=== PATIENT | female | born 1990 | race Caucasian/White ===

== ENCOUNTER → 2018-06-30 | Outpatient (CLI) | payer OTHER ==
[~2018-06-30] MED LIST: FLUO20 PO; IBUP800 PO; TRAM50 PO
== END | disposition home or self-care (01) ==
LOC: LAB SHORT 10:13 → LAB EV 10:13
DX: J02.9 Acute pharyngitis, unspecified (principal)
CPT/HCPCS: 87070

== ENCOUNTER 2019-05-24 19:35 | Emergency (ER) | payer OTHER ==
[~2019-05-24] VITALS: Ht 165.1 cm; Wt 86.0 kg
[2019-05-24] MEDS ORDERED: DEXA4 PO (19:58)
[2019-05-24] MEDS ORDERED: Veetids 500500 MG PO (19:58)
[2019-05-24] MEDS ORDERED: IBUP800 PO (19:59)
== END 2019-05-24 20:06 | disposition home or self-care (01) ==
LOC: ER 19:35
DX: J02.9 Acute pharyngitis, unspecified (principal); F17.200 Nicotine dependence, unspecified, uncomplicated
CPT/HCPCS: 99283

== ENCOUNTER → 2025-02-14 | Outpatient (CLI) | payer OTHER ==
[~2025-02-14] MED LIST changes: +DEXA4 PO; +Veetids 500500 MG PO
[2025-02-20 07:38] LABS: HPVG SOURCE Cervical
== END ==
LOC: LAB SHORT 08:45 → LAB 08:45
PROVIDERS: Physician Assistant
DX: Z01.419 Encounter for gynecological examination (general) (routine) without abnormal findings (principal)
CPT/HCPCS: 87624; 87625; G0145